=== PATIENT | female | born 1970 ===

== ENCOUNTER 2023-08-04 19:18 | Outpatient (CLI) | payer MEDICAID | END 2023-08-04 19:19 | disposition EMS.NT | LOC: EMS 19:18 | DX: S09.92XA Unspecified injury of nose, initial encounter (principal); W50.0XXA Accidental hit or strike by another person, initial encounter; Y93.89 Activity, other specified; Y92.009 Unspecified place in unspecified non-institutional (private) residence as the place of occurrence of the external cause ==